=== PATIENT | female | born 1950 | race Caucasian/White ===

== ENCOUNTER 2016-07-20 17:53 | Inpatient (IN) | payer BC, OTHER ==
--- NOTE | ~2016-07-20 | OP ---
Record Of Operation [facility] [address] [place]. [address] NAME: MESHARFRACISCO : 50 STATUS : ADM IN PAT#: [id number] AGE: 66 ADM/REG DATE : 07/20/16 MR#: [id number] REPORT SERV DATE: 07/21/16 DICTATED BY: CINTHYA FOSTER DATE: 07/21/16 REPORT STATUS : Draft TRANSCRIBED BY: CHARLI DATE: 07/21/16 DATE OF PROCEDURE: 07/21/2016 PREOPERATIVE DIAGNOSIS: Comminuted displaced intertrochanteric fracture, right hip. POSTOPERATIVE DIAGNOSIS: Comminuted displaced intertrochanteric fracture, right hip. PROCEDURE: [place] compression screw, right hip. OP REPORT: The patient was brought to the operating room after successful induction of general inhalation anesthesia, administration 2 g of Ancef preoperatively. The patient placed on the fracture table with significant longitudinal tractions applied slight and internal rotation and minimal abduction. The hip was provisionally reduced. On initial fluoroscopic views in AP and lateral projection showed excellent reduction. At this point, the hip, thigh, groin, leg, and buttock were scrubbed, prepped, and draped in usual sterile fashion. A short lateral incision beginning at the base of the greater trochanter was carried about 7 to 8 cm distally down through the skin and subcutaneous tissue and then down through the abundant fat to the fascia miguel a which was cleaned off and divided in direction of skin incision. Hemostasis was obtained using electrocoagulation. The fascia miguel a was elevated anteriorly and the fascia of the vastus lateralis was divided and elevated from the lateral femoral shaft with a periosteal elevator. A Wilson retractors was placed anteriorly and then a Hohmann placed posteriorly. A guide pin was used for the initial placement. This was placed anterior to the femoral neck and a guide pin was placed in a central position laterally slightly medially and inferior on the AP. It was drilled in the subchondral bone, Reamed to 100 mm and a 90 mm lag screw was selected, this was seated over the guide pin and tightened into the subchondral bone and a 135-degree 4-hole Omega3 compression plate was positioned, it was slightly posterior in the lateral projection, but this is the way would be most best contour to the lateral femoral shaft. This was secured with 4.5 cortical screws, were drilled with 3.2 rather than a 3.6 drill bit for better screw fixation. It was tightened down by hand. The traction was released. The compression screw was tightened down by hand. Final x-ray showed excellent position of the fracture. The wound was irrigated. The fascia vastus lateralis was closed with running 0 Vicryl suture. The fascia miguel a with running interrupted #1 Vicryl suture. Subcutaneous tissue with 2-0 and the skin with skin william. The patient was stable intraoperatively. ESTIMATED BLOOD LOSS: Approximately 300 mL and received 600 mL of crystalloid. Record Of Operation [facility] [address] [facility] [place]. [address] NAME: MESHARFRACISCO : 50 STATUS : ADM IN [facility]#: [id number] AGE: 66 ADM/REG DATE : 07/20/16 MR#: [id number] REPORT SERV DATE: 07/21/16 DICTATED BY: CINTHYA FOSTER DATE: 07/21/16 REPORT STATUS : Draft TRANSCRIBED BY: CHARLI DATE: 07/21/16 BRIAN/CHARLI Cinthya Foster M.D. / [id number] CC: Pamela Ma M.D.
--- NOTE | ~2016-07-20 | DS ---
Discharge Summary [facility] [address] [place]. [address] NAME: MESHARFRACISCO : 50 STATUS : DIS IN PAT#: [id number] AGE: 66 ADM/REG DATE : 07/20/16 MR#: [id number] REPORT SERV DATE: 07/24/16 DICTATED BY: PJ VALENCIA DATE: 07/24/16 REPORT STATUS : Draft TRANSCRIBED BY: CHARLI DATE: 07/24/16 ADMISSION DATE: 07/20/2016 DISCHARGE DATE: 07/24/2016 DIAGNOSES ON ADMISSION: 1. Right hip fracture. 2. 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 3. Anemia. 4. Hypertension. DIAGNOSES ON DISCHARGE: 1. Status post right hip surgery for comminuted displaced intertrochanteric fracture on the right hip, done by Dr. Vasquez on 07/21/2016. 2. Hypertension, controlled. 3. History of seizures. No evidence of seizures while inpatient. 4. Pain controlled. CONSULTANTS ON THE CASE: Orthopedist, Dr. Vasquez. HISTORY OF PRESENT ILLNESS: Per dictation of Dr. Gonzalez on 07/20/2016. HOSPITAL COURSE: Briefly, the patient was status post hip fracture. She had a surgery on 07/21/2016. The patient was seen by Dr. Coombs and his nurse practitioner Babar Moran until 07/23/2016 when I started to see this patient. She was very stable, was doing very well, and all her vital signs were in the normal range, so she was waiting for inpatient rehabilitation for [facility]. Her blood pressure has been in the normal range as well as her hemoglobin stayed stable after surgery. She had postsurgical constipation and she was given yesterday MiraLAX and magnesium citrate, but she still did not have bowel movement. Today, she started to pass gas, and she was given again laxative such as magnesium citrate and she was about to have a bowel movement, and it was ordered the patient not to be discharged until she will have a bowel movement, but the [facility] agreed to take her and they said that they will take care of the constipation, especially in the situation when the patient did not have any abdominal pain and she was very stable, eating and drinking without any nausea, so [facility] said that they are qualified to manage constipation with laxatives there. The patient was discharged in a stable condition. DISCHARGE MEDICATIONS: Keppra 750 twice a day; vitamin B12 1000 mcg daily; calcium with vitamin D 600 mg daily; vitamin D 200 units daily; Lovenox 30 mg subcu twice a day recommended by Dr. Vasquez for DVT prophylaxis after hip surgery; Singulair 10 mg daily; multivitamins daily; Flonase 2 sprays twice a day p.r.n.; Spiriva 2 sprays 4 times a day p.r.n.; hydrocodone 1 tablet p.o. q.4 hours p.r.n., was prescribed by nurse practitioner Holli; melatonin 5 mg at bedtime; ophthalmic eyedrops daily; Maxzide 37.5/25 half tablet Friday, Friday, Friday, , Friday, Friday, except Friday; carbamazepine 600 mg at bedtime on Friday and , and 2 capsules at bedtime on Friday and only; carbamazepine 600 mg a day; and carbamazepine also 300 mg p.o. at bedtime on Friday, Friday, Friday, Friday, and Friday. Discharge Summary [facility] [address] [place]. [address] NAME: FRACISCO TORRES : 50 STATUS : DIS IN PAT#: [id number] AGE: 66 ADM/REG DATE : 07/20/16 MR#: [id number] REPORT SERV DATE: 07/24/16 DICTATED BY: PJ VALENCIA DATE: 07/24/16 REPORT STATUS : Draft TRANSCRIBED BY: CHARLI DATE: 07/24/16 The patient was discharged in a stable condition. The patient to follow up with her primary care physician Dr. Chepe Avitia after discharge from rehab. I spent 45 minutes on discharge. /CHARLI Pj Valencia M.D. / [id number] CC: Pamela Weems M.D. Neil Spitalny, M.D.
--- NOTE | ~2016-07-20 | HP ---
History And Physical [facility] [id number] [place]. [address] NAME: MESHARFRACISCO : 50 STATUS : ADM IN PAT#: [id number] AGE: 66 ADM/REG DATE : 07/20/16 MR#: [id number] REPORT SERV DATE: 07/20/16 DICTATED BY: MANNY ALBERTO DATE: 07/20/16 REPORT STATUS : Draft TRANSCRIBED BY: CHARLI DATE: 07/20/16 DATE OF ADMISSION: 07/20/2016 CHIEF COMPLAINT: Same-level fall with right hip pain. HISTORY OF PRESENT ILLNESS: The patient is a 66-year-old female with past medical history of tuberous sclerosis and epilepsy since 6, last seizure episode 10 years ago, who was doing laundry today and had same-level fall and subsequent right hip pain. Symptoms have been approximately 4 o'clock. Symptoms of pain have been moderate to severe with dull pain, nonradiating. No nausea, vomiting, diarrhea, fever, chills, shortness of breath, or palpitations reported. Symptoms are worsened with range of motion and relieved by rest. Symptoms are improved after giving morphine in the emergency room. Symptoms were innocent fall, as she accidentally fell backwards when she was doing her laundry. No head trauma. REVIEW OF SYSTEMS: Additional 10-point review of systems negative except that noted in the HPI. PAST MEDICAL HISTORY: Seizure disorder with epilepsy, secondary tuberous sclerosis, last seizure 10 years ago, otherwise regular state of health. SURGERIES: Breast biopsies secondary to fibrous changes reported benign per the patient. SOCIAL HISTORY: No illicits, alcohol, or tobacco use. FAMILY HISTORY: Diabetes type 2, Parkinson's, lung cancer in father. No anesthesia complications reported in family members. PHYSICAL EXAMINATION: VITAL SIGNS: The patient's blood pressure 162/84, temperature 98.2, pulse 77, respirations 20, O2 saturation 100%. GENERAL: No acute distress. Calm, pleasant, well developed, well nourished. EYES: No scleral icterus. EOMI. ENT: Does have facial rosacea. Nares patent. Tongue midline. RESPIRATORY: Clear to auscultation. No wheezes or rales. CV: Regular rate. No rubs or gallops. Does have bilateral edema, approximately trace. GI: Soft, nontender, nondistended. Bowel sounds positive. : [place]. MUSCULOSKELETAL: Right hip pain with motion and difficulty with extension. Sensation is still grossly intact. EXTREMITIES: Warm. Does have large bilateral edema on both lower extremities. hand, symmetrical strength. SKIN: Warm and dry. LYMPH: No cervical or supraclavicular lymphadenopathy. HEME: No bleeding or bruising. NEURO: Alert and oriented. Sensation is still grossly intact x4. PSYCH: Appropriate mood and affect. History And Physical [address] [place]. [address] NAME: MESHARFRACISCO : 50 STATUS : ADM IN [facility]#: [id number] AGE: 66 ADM/REG DATE : 07/20/16 MR#: [id number] REPORT SERV DATE: 07/20/16 DICTATED BY: MANNY ALBERTO DATE: 07/20/16 REPORT STATUS : Draft TRANSCRIBED BY: CHARLI DATE: 07/20/16 EKG: Normal sinus rhythm, rate of 84, QTc 477. LABORATORY DATA: Urinalysis grossly within normal limits. CMP; sodium 134, glucose 111, otherwise grossly within normal limits. CBC; WBC count 8.1, H and H 11.9 and 35.6, platelets 277. Hip x-ray, gross right hip fracture. ASSESSMENT AND PLAN: 1. Right hip fracture. 2. Seizure history with epilepsy with secondary tuberous sclerosis. 3. Tuberous sclerosis. 4. Fall. 5. Anemia. PLAN: 1. For right hip fracture, n.p.o. at midnight. Ortho OR anticipated in a.m. ER as discussed with Dr. Vasquez. 2. Seizure history. Last seizure greater than 10 years ago. 3. Tuberous sclerosis. The patient reports on levetiracetam for seizure history. We will continue these medications. 4. Fall, same level, innocent fall, on calcium replacements. 5. Anemia. Check iron studies. All questions answered with the patient and family at bedside. DDN/MODL Manny Alberto MD / [id number] CC: Usman Coombs M.D. Chepe Avitia M.D.
[2016-07-20 17:35] LABS: BASOPHILS 0.2 %; BASOPHILS ABSOLUTE 0.02 10/3/uL (0.0-0.16); EOSINOPHILS 1.5 %; EOSINOPHILS ABSOLUTE 0.12 10/3/uL (0.0-0.53); HEMOGLOBIN 11.9 g/dL (12.0-16.0); IMMATURE GRANULOCYTES 0.2 %; IMMATURE GRANULOCYTES ABSOLUTE 0.02 10/3/uL (0.0-0.11); LYMPHOCYTES 17.5 %; LYMPHOCYTES ABSOLUTE 1.41 10/3/uL (0.67-4.30); MEAN CORPUS HGB CONC 33.4 g/dL (32.0-36.0); MONOCYTES 9.5 %; MONOCYTES ABSOLUTE 0.77 10/3/uL (0.21-1.20); NEUTROPHILS 71.1 %; NEUTROPHILS ABSOLUTE 5.74 10/3/uL (2.02-8.40); PLATELET COUNT 277 10/3/uL (150-400); RBC DISTRIBUTION WIDTH 13.1 % (12.0-16.0); RED CELL COUNT 3.84 10/6/uL (4.0-5.6)
[2016-07-20 17:42] LABS: ER CBC TAT 0 Hrs 10 Mins; HEMATOCRIT 35.6 % (36.0-48.0); MANUAL DIFF NO %; MEAN CORPUSCULAR VOLUME 92.7 fL (80-100); WHITE BLOOD CELLS 8.1 10/3/uL (4.5-10.5)
[2016-07-20 17:51] LABS: A/G RATIO 1.1 (0.7-1.9); ALBUMIN 3.5 G/DL (3.5-5.0); ALKALINE PHOSPHATASE 75 U/L (45-117); BUN (BLOOD UREA NITROGEN) 8 MG/DL (6-23); CALCIUM, SERUM 8.5 MG/DL (8.5-10.4); CHLORIDE, SERUM 96 MMOL/L (96-112); CO2 (CARBON DIOXIDE) 29 MMOL/L (24-34); GFR AFRICAN AMERICAN 110 ML/MIN (>=60); GFR NON AFRICAN AMERICAN 95 ML/MIN (>=60); GLOBULIN 3.2 G/DL (2.5-4.1); GLUCOSE, SERUM 111 MG/DL (60-99); POTASSIUM, SERUM 3.8 MMOL/L (3.5-5.3); SGPT(ALT) 22 U/L (5-65); SODIUM, SERUM 134 MMOL/L (135-148); TOTAL BILIRUBIN 0.3 MG/DL (0-1.2); TOTAL PROTEIN 6.7 G/DL (6.0-8.5)
[2016-07-20 17:52] LABS: SGOT(AST) 26 U/L (5-40)
[~2016-07-20 17:53] MED LIST: CARBAT300 PO; MOBIC15 MG PO; PB60 PO; TOPAMAX200 MG PO
[2016-07-20 18:13] LABS: WBC (NOT ORDERED) (RFLEX) 0 (0-5)
[2016-07-20 18:24] LABS: ASCORBIC ACID (UR NOT ORDER) NEG (NEG); BILIRUBIN, URINE NEGATIVE (NEG); ER URINALYSIS TAT 0 Hrs 12 Mins; KETONE, URINE TRACE MG/DL (NEG); LEUKOCYTE ESTERASE(NOT OR NEG (NEG); NITRITE (URINE) NEG (NEG)
[2016-07-20] MEDS ORDERED: ATRONASAL6 NAS (21:57)
[2016-07-20] MEDS ORDERED: MELATONIN5 M1 PO (21:58)
[2016-07-20] MEDS ORDERED: THERGRANM PO (21:58)
[2016-07-20] MEDS ORDERED: FLONASE NAS (21:59)
[2016-07-20] MEDS ORDERED: GENTEAL 15 ML O15 ML OPH (21:59)
[2016-07-20] MEDS ORDERED: SINGULAIR1 PO (21:59)
[2016-07-20] MEDS ORDERED: KEPPRA750 MG PO (22:00)
[2016-07-20] MEDS ORDERED: CYANO1000T PO (22:00)
[2016-07-20] MEDS ORDERED: MAX25 PO (22:02)
[2016-07-20] MEDS ORDERED: VITAMIN D1000 UNI1 PO (22:02)
[2016-07-20] MEDS ORDERED: CALTRA600D PO (22:02)
[2016-07-20] MEDS ORDERED: CARBAT300 PO ×3 (22:10→22:12)
[2016-07-21 05:10] LABS: BASOPHILS 0.1 %; BASOPHILS ABSOLUTE 0.01 10/3/uL (0.0-0.16); EOSINOPHILS 0 %; HEMATOCRIT 32.9 % (36.0-48.0); HEMOGLOBIN 11.5 g/dL (12.0-16.0); IMMATURE GRANULOCYTES 0.1 %; IMMATURE GRANULOCYTES ABSOLUTE 0.01 10/3/uL (0.0-0.11); LYMPHOCYTES 9.7 %; LYMPHOCYTES ABSOLUTE 0.66 10/3/uL (0.67-4.30); MANUAL DIFF NO %; MEAN CORPUSCULAR HEMOGLOB 32.6 pg (26.0-34.0); MEAN CORPUSCULAR VOLUME 93.2 fL (80-100); MEAN PLATELET VOLUME 9.3 fL (9.2-13.0); MONOCYTES 10.1 %; MONOCYTES ABSOLUTE 0.69 10/3/uL (0.21-1.20); NEUTROPHILS ABSOLUTE 5.43 10/3/uL (2.02-8.40); PLATELET COUNT 288 10/3/uL (150-400); RBC DISTRIBUTION WIDTH 13.1 % (12.0-16.0); RED CELL COUNT 3.53 10/6/uL (4.0-5.6); WHITE BLOOD CELLS 6.8 10/3/uL (4.5-10.5)
[2016-07-21 05:26] LABS: BUN (BLOOD UREA NITROGEN) 6 MG/DL (6-23); CALCIUM, SERUM 8.3 MG/DL (8.5-10.4); CHLORIDE, SERUM 101 MMOL/L (96-112); CO2 (CARBON DIOXIDE) 28 MMOL/L (24-34); CREATININE 0.55 MG/DL (0.55-1.02); FERRITIN 96 NG/ML (8-252); GFR AFRICAN AMERICAN 113 ML/MIN (>=60); GFR NON AFRICAN AMERICAN 98 ML/MIN (>=60); GLUCOSE, SERUM 118 MG/DL (60-99); IRON BINDING CAPACITY 219 MCG/DL (225-410); IRON, SERUM 56 MCG/DL (35-150); POTASSIUM, SERUM 3.6 MMOL/L (3.5-5.3); SODIUM, SERUM 137 MMOL/L (135-148)
[2016-07-22 04:54] LABS: MEAN CORPUS HGB CONC 34.2 g/dL (32.0-36.0); MEAN CORPUSCULAR HEMOGLOB 32.5 pg (26.0-34.0); MEAN CORPUSCULAR VOLUME 94.9 fL (80-100); MEAN PLATELET VOLUME 9.3 fL (9.2-13.0); RBC DISTRIBUTION WIDTH 13.4 % (12.0-16.0); WHITE BLOOD CELLS 6.3 10/3/uL (4.5-10.5)
[2016-07-22 04:55] LABS: HEMATOCRIT 26.3 % (36.0-48.0); MANUAL DIFF YES %; PLATELET COUNT 199 10/3/uL (150-400); RED CELL COUNT 2.77 10/6/uL (4.0-5.6)
[2016-07-22 05:03] LABS: BUN (BLOOD UREA NITROGEN) 6 MG/DL (6-23); CHLORIDE, SERUM 99 MMOL/L (96-112); CO2 (CARBON DIOXIDE) 31 MMOL/L (24-34); CREATININE 0.64 MG/DL (0.55-1.02); GFR AFRICAN AMERICAN 108 ML/MIN (>=60); GFR NON AFRICAN AMERICAN 93 ML/MIN (>=60); GLUCOSE, SERUM 120 MG/DL (60-99); POTASSIUM, SERUM 3.8 MMOL/L (3.5-5.3); SODIUM, SERUM 136 MMOL/L (135-148)
[2016-07-22 05:28] LABS: BAND NEUTROPHILS 2 %; EOSINOPHILS 3 %; EOSINOPHILS ABSOLUTE (CALC) 0.19 10/3/uL (0.0-0.53); IMMATURE GRANS ABSOLUTE (CALC) 0.06 10/3/uL (0.0-0.11); LYMPHOCYTES 24 %; LYMPHOCYTES ABSOLUTE (CALC) 1.51 10/3/uL (0.67-4.30); METAMYELOCYTES 1 %; MONOCYTES 7 %; MONOCYTES ABSOLUTE (CALC) 0.44 10/3/uL (0.21-1.20); SEGMENTED NEUTROPHIL (0) 63 %; TOTAL NUCLEATED CELLS 100
[2016-07-22 05:29] LABS: PLATELET ESTIMATE ADQ (ADEQUATE); RBC MORPHOLOGY NORM (NORMAL)
[2016-07-23 04:49] LABS: BASOPHILS 0.1 %; BASOPHILS ABSOLUTE 0.01 10/3/uL (0.0-0.16); EOSINOPHILS 1.3 %; EOSINOPHILS ABSOLUTE 0.09 10/3/uL (0.0-0.53); HEMATOCRIT 25.9 % (36.0-48.0); HEMOGLOBIN 8.9 g/dL (12.0-16.0); IMMATURE GRANULOCYTES 0.4 %; IMMATURE GRANULOCYTES ABSOLUTE 0.03 10/3/uL (0.0-0.11); LYMPHOCYTES 18.8 %; LYMPHOCYTES ABSOLUTE 1.33 10/3/uL (0.67-4.30); MEAN CORPUS HGB CONC 34.4 g/dL (32.0-36.0); MEAN CORPUSCULAR HEMOGLOB 32.1 pg (26.0-34.0); MEAN CORPUSCULAR VOLUME 93.5 fL (80-100); MEAN PLATELET VOLUME 9.4 fL (9.2-13.0); MONOCYTES 16.2 %; MONOCYTES ABSOLUTE 1.15 10/3/uL (0.21-1.20); NEUTROPHILS 63.2 %; NEUTROPHILS ABSOLUTE 4.48 10/3/uL (2.02-8.40); PLATELET COUNT 186 10/3/uL (150-400); RBC DISTRIBUTION WIDTH 13.2 % (12.0-16.0); RED CELL COUNT 2.77 10/6/uL (4.0-5.6); WHITE BLOOD CELLS 7.1 10/3/uL (4.5-10.5)
[2016-07-23 04:50] LABS: MANUAL DIFF NO %
[2016-07-23 05:22] LABS: BUN (BLOOD UREA NITROGEN) 6 MG/DL (6-23); CALCIUM, SERUM 8.3 MG/DL (8.5-10.4); CHLORIDE, SERUM 97 MMOL/L (96-112); CO2 (CARBON DIOXIDE) 27 MMOL/L (24-34); CREATININE 0.49 MG/DL (0.55-1.02); GFR AFRICAN AMERICAN 118 ML/MIN (>=60); GFR NON AFRICAN AMERICAN 102 ML/MIN (>=60); GLUCOSE, SERUM 128 MG/DL (60-99); POTASSIUM, SERUM 3.3 MMOL/L (3.5-5.3); SODIUM, SERUM 132 MMOL/L (135-148)
[2016-07-24 04:51] LABS: BASOPHILS 0.2 %; BASOPHILS ABSOLUTE 0.02 10/3/uL (0.0-0.16); EOSINOPHILS 1.5 %; EOSINOPHILS ABSOLUTE 0.13 10/3/uL (0.0-0.53); HEMATOCRIT 27.8 % (36.0-48.0); HEMOGLOBIN 9.7 g/dL (12.0-16.0); IMMATURE GRANULOCYTES 0.6 %; IMMATURE GRANULOCYTES ABSOLUTE 0.05 10/3/uL (0.0-0.11); LYMPHOCYTES 11.7 %; LYMPHOCYTES ABSOLUTE 1.01 10/3/uL (0.67-4.30); MEAN CORPUS HGB CONC 34.9 g/dL (32.0-36.0); MEAN CORPUSCULAR HEMOGLOB 32.7 pg (26.0-34.0); MEAN CORPUSCULAR VOLUME 93.6 fL (80-100); MEAN PLATELET VOLUME 9.6 fL (9.2-13.0); MONOCYTES 12.3 %; MONOCYTES ABSOLUTE 1.06 10/3/uL (0.21-1.20); NEUTROPHILS 73.7 %; NEUTROPHILS ABSOLUTE 6.34 10/3/uL (2.02-8.40); RBC DISTRIBUTION WIDTH 13.1 % (12.0-16.0); RED CELL COUNT 2.97 10/6/uL (4.0-5.6); WHITE BLOOD CELLS 8.6 10/3/uL (4.5-10.5)
[2016-07-24 04:52] LABS: MANUAL DIFF NO %; PLATELET COUNT 243 10/3/uL (150-400)
[2016-07-24 05:06] LABS: CALCIUM, SERUM 8.6 MG/DL (8.5-10.4); CHLORIDE, SERUM 95 MMOL/L (96-112); CO2 (CARBON DIOXIDE) 28 MMOL/L (24-34); CREATININE 0.54 MG/DL (0.55-1.02); GFR AFRICAN AMERICAN 114 ML/MIN (>=60); GFR NON AFRICAN AMERICAN 98 ML/MIN (>=60); GLUCOSE, SERUM 136 MG/DL (60-99); SODIUM, SERUM 132 MMOL/L (135-148)
[2016-07-24 05:09] LABS: BUN (BLOOD UREA NITROGEN) 10 MG/DL (6-23)
[2017-01-10] MEDS ORDERED: CRESTOR10 PO (10:05)
== END 2016-07-24 13:24 | DRG 481 ==
LOC: ER 17:53 → 3SO 22:15
PROVIDERS: Hospitalist; Internal Medicine; Nurse Practitioner Family; Nurse Practitioner Gerontology; Orthopaedic Surgery
PROC: 0QS804Z Reposition Right Femoral Shaft with Internal Fixation Device, Open Approach (ICD-10-PCS; principal; 2016-07-20)
DX: S72.001A Fracture of unspecified part of neck of right femur, initial encounter for closed fracture (principal); Q85.1 Tuberous sclerosis; I10 Essential (primary) hypertension; D62 Acute posthemorrhagic anemia; W18.30XA Fall on same level, unspecified, initial encounter; D64.9 Anemia, unspecified
CPT/HCPCS: 71010; 73502-RT; 73560-RT; 76000; 80048; 80053; 81001; 82728; 83540; 83550; 83735; 84132; 85025; 93005; 96374; 96375; 96376; 97110-GP; 97116-GP; 97161-GP; 97166-GO; 99285; A9270-GY; C1713; J0690; J1170; J2270; J2370; J2405; J2710; J3010